=== PATIENT | male | born 2000 | race Caucasian/White ===

== ENCOUNTER 2025-06-03 16:05 | Outpatient (CLI) | payer OTHER, SELFPAY ==
--- NOTE | 2025-06-03 | XR_ITS ---
PROCEDURE INFORMATION: Exam: XR Left Knee Exam date and time: 06/03/2025 4:16 PM Age: 24 years old Clinical indication: Pain; Knee; Left TECHNIQUE: Imaging protocol: Radiologic exam of the left knee. Views: 3 views. COMPARISON: No relevant prior studies available. FINDINGS: Bones/joints: There is no evidence of acute fracture.There is no evidence of malalignment or dislocation. Mild Suprapatellar joint effusion Soft tissues: Normal. IMPRESSION: There is no evidence of acute fracture.There is no evidence of malalignment or dislocation.
--- NOTE | 2025-06-03 | XR_ITS ---
PROCEDURE INFORMATION: Exam: XR Right Knee Exam date and time: 06/03/2025 4:16 PM Age: 24 years old Clinical indication: Pain; Knee; Right TECHNIQUE: Imaging protocol: Radiologic exam of the right knee. Views: 3 views. COMPARISON: No relevant prior studies available. FINDINGS: Bones/joints: There is no evidence of acute fracture.There is no evidence of malalignment or dislocation. Mild suprapatellar joint effusion. Soft tissues: Normal. IMPRESSION: 1. There is no evidence of acute fracture.There is no evidence of malalignment or dislocation. 2. Mild suprapatellar joint effusion.
--- OUTSIDE RECORDS SUMMARY | 2025-06-03 16:11 | XMS_ITS | Clinical Summary ---
Author Organization [facility] Address [address] 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 Phone Unavailable Primary Care Provider Unavailabl e Allergies No known active allergies Medications No known medications Active Problems Problem Noted Date Diagnosed Date Full body hives 03/23/2016 Fx wrist 12/19/2012 Oral herpes simplex infection 09/28/2012 Immunizations Immunization Administration Dates Next Due DTaP 02/12/2003, 0,03/11/1999,1998,1998 HPV Quadrivalent 06/20/2013 Hepatitis A, Unspecified Formulation 06/20/2013 Hepatitis B, Unspecified Formulation 05/08/1999, 1998,1998 HiB, Unspecified Formulation 08/23/2000, 03/11/1999,01/22/1999,1997 IPV 02/12/2003, 9,01/22/1999,1997 Influenza Vaccine, Unspecifi ed Formulation 09/18/2011 MMR 02/12/2003,08/23/2000 Tdap 08/14/2009 Varicella 06/20/2013,02/12/2003 Social History Tobacco Use Types Packs/Day Years Used Date Smoking Tobacco: Never Smokeless Tobacco: Never Tobacco Cessation:Counseling Given: Yes Alcohol Use Standard Drinks/Week Comments No 0 (1 standard drink = 0.6 oz pur e alcohol) PHQ-2 Answer Date Recorded PHQ-2 Score 0 04/18/2019 Sex and Gender Information Value Date Recorded Sex Assigned at Not on file Legal Sex Male 3:59 AM EDT Gender Identity Not on file Sexual Orientation Not on file Obstetrics History Last Filed Vital Signs Vital Sign Reading Time Taken Comments Blood Pressure 118/70 01/23/2019 8:17 AM EST Pulse 85 01/23/2019 8:17 AM EST Temperature 36.6 C (97.8 F) 01/23/2019 8:17 AM EST Respiratory Rate - - Oxygen Saturation 98% 01/23/2019 8:17 AM EST Inhaled Oxygen Concentration - - Weight 62.8 kg (138 lb 6.4 oz) 01/23/2019 8:17 A M EST Height 165.1 cm (5' 5 ) 06/20/2013 1:50 PM EDT Body Mass Index - - Plan of Treatment Health Maintenance Due Date Last Done Comments Annual Wellness Exam 2001 HPV (2 - Male 2-dose series) 12/21/2013 06/20/2013 COVID-19 Vaccine (3 - season) 2024 02/11/2021, 01/07/2021 Influenza Vaccine (#1) 2025 , 11/05/2019, 01/27/2015 (Declined), Additional history exists DTaP/TDaP/Td (8 - Td or Tdap) 11/05/2029 11/05/2019, 08/14/2009, 02/12/2003, Additional history exists Hepatitis B Vaccine Completed 12/13/2019, 11/05/2019, 05/08/1999, Additional history exists Meningococcal B Vaccine Aged Out No l onger eligible based on patient's age to complete this topic Pneumococcal Vaccine 0-49 Aged Out No longer eligible based on patient's age to complete this topic Goals Goal Patient Goal Type Associated Problems Recent Progress Patient-Stated? Author Maintain a healthy diet, exercise regularly and maintain an ideal body weight General No Zehra Ortiz, [facility]
== END 2025-06-03 23:59 | disposition home or self-care (01) ==
PROVIDERS: PCP Internal Medicine; Visit Provider Chiropractor
DX: M25.461 Effusion, right knee (principal); M19.90 Unspecified osteoarthritis, unspecified site
CPT/HCPCS: 73562

== ENCOUNTER 2025-07-16 13:26 | Outpatient (CLI) | payer OTHER, SELFPAY ==
--- OUTSIDE RECORDS SUMMARY | 2025-07-16 13:28 | XMS_ITS | Continuity of Care Document ---
Author Name [facility] Organization [facility] Care Team Providers Care Speech Pathologist Name Role Phone [facility] Unavailable Unavailable Problems Combined list of problems from Department of Defense and Veterans Affairs facilities. It does not include entries that were removed or entered in error. Problem Status Onset Date Problem Type Date of Resolution Comments Source Diagnosis deferred Active 08/10/2024 Diagnosis 0067A[facility] Cnt Follicular disorder, unspecified Inactive 10/05/2023 Condition DoD Dyshidrosis [pompholyx] Inactive 07/21/2023 Condition DoD Encounter for other administrative examinations Inactive 06/29/2023 Condition DoD Other viral enteritis Inactive 06/07/2023 Condition DoD Low back pain Inactive 05/09/2023 Condition DoD Encounter for other general examination Inactive 11/02/2022 Condition DoD Viral intestinal infection, unspecified Inactive 10/07/2022 Condition DoD Acute upper respiratory infection, unspecified Inactive 06/04/2022 Condition DoD Ingrowing nail Inactive 08/28/2021 Condition DoD Nausea with vomiting, unspecified Inactive 04/27/2021 Condition DoD EXAM/ASSESSMENT, OCCUPATIONAL, 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 It does not include entries that were removed or entered in error. Substance Category Reaction Severity Reaction type Status Date Reported Comments Source No Known Allergies Drug allergy (disorder) active 01/01/2020 [facility] Immunizations Combined list of available immunizations from the Department of Defense and Veterans Affairs facilities. Immunization Series Date Given Administered By Site Reaction Lot Number CVX Code Drug Central Processing Technician Status Comments Source typhoid Vi capsular polysaccharid e vac 2021 UNK 101 Unknown complet ed typhoid Vi capsular polysacch aride vac 05/27/22 Given Ambulat ory Pharmac y COVID Vaccine Moderna 2021 [id number] complet ed COVID Vaccine Moderna 04/02/22 Given Ambulat ory Pharmac y SARS-COV-2 (COVID-19) vaccine, mRNA, spike protein, LNP, preservative free, 100 mcg or 50 mcg dose 3 2021 [id number] 207 Moderna [employer] (MOD) complet ed SARS-COV- 2 (COVID-19 ) vaccine, mRNA, spike protein, LNP, preservat ramsey free, 100 mcg or 50 mcg dose DoD influenza, injectable, quadrivalent 2020 [id number] [employer] vt complet ed influenza , injectabl e, quadrival ent 08/31/21 Given Ambulat ory Pharmac y hepatitis A-hepatitis B vaccine 2020 UNK 104 Unknown complet ed hepatitis A-hepatit is B vaccine 04/23/21 Given Ambulat ory Pharmac y hepatitis A-hepatitis B vaccine 2020 UNK 104 Unknown complet ed hepatitis A-hepatit is B vaccine 04/23/21 Given Ambulat ory Pharmac y hepatitis A and hepatitis B vaccine 3 2020 UNK 104 Unknown (UNK) comple t ed hepatitis A and hepatitis B vaccine DoD Taiwanese Encephalitis IM 2020 UNK 134 Unknown complet ed Taiwanese Encephali tis IM 03/12/21 Given Ambulat ory Pharmac y Taiwanese Encephalitis vaccine for intramuscular administratio n 1 2020 UNK 134 Unknown (UNK) comple t ed Taiwanese Encephali tis vaccine for intramusc ular administr ation DoD COVID Vaccine Moderna 2020 [id number] complet ed COVID Vaccine Moderna 02/11/21 Given Ambulat ory Pharmac y SARS-COV-2 (COVID-19) vaccine, mRNA, spike protein, LNP, preservative free, 100 mcg or 50 mcg dose 2 2020 [id number] 207 Moderna US, Inc. (MOD) complet ed SARS-COV- 2 (COVID-19 ) vaccine, mRNA, spike protein, LNP, preservat ramsey free, 100 mcg or 50 mcg dose DoD COVID Vaccine Moderna 2020 zzLef t Arm [id number] 207 complet ed COVID Vaccine Moderna 01/07/21 Given Ambulat ory Pharmac y SARS-COV-2 (COVID-19) vaccine, mRNA, spike protein, LNP, preservative free, 100 mcg or 50 mcg dose 1 2020 MICHAEL ALEJANDRE [id number] 207 Moderna [employer] (MOD) complet ed SARS-COV- 2 (COVID-19 ) vaccine, mRNA, spike protein, LNP, preservat ramsey free, 100 mcg or 50 mcg dose DoD influenza, injectable, quadrivalent 2019 [id number] 158 Seqirus complet ed influenza , injectabl e, quadrival ent 09/26/20 Given Ambulat ory Pharmac y influenza, injectable, quadrivalent, contains preservative 0 2019 [id number] 210 158 Seqirus (SEQ) complet ed influenza , injectabl e, quadrival ent, contains preservat ramsey DoD varicella virus vaccine 0 2019 21 () Not Given varicella virus vaccine DoD Taiwanese Encephalitis IM 2019 [facility] Arm TRANSCR IBED 134 complet ed Taiwanese Encephali tis IM 12/18/19 Given Ambulat ory Pharmac y typhoid Vi capsular polysaccharid e vac 2019 [facility] Arm TRANSCR IBED 101 complet ed typhoid Vi capsular polysacch aride vac 12/18/19 Given Ambulat ory Pharmac y typhoid Vi capsular polysaccharid e vaccine 1 2019 101 Transcribed (TRS) complet ed typhoid Vi capsular polysacch aride vaccine DoD Taiwanese Encephalitis vaccine for intramuscular administratio n 1 2019 134 Transcribed (TRS) complet ed Taiwanese Encephali tis vaccine for intramusc ular administr ation DoD poliovirus vaccine, inactivated [facility] [id number] 10 sanofi pasteur complet ed polioviru s vaccine, inactivat ed 12/13/19 Given Ambulat ory Pharmac y measles/mumps /rubella virus vaccine 2019 zzRig Arm [id number] Merck & iMedX Inc complet ed measles/m umps/rube lla virus vaccine 12/13/19 Given Ambulat ory Pharmac y hepatitis A-hepatitis B vaccine 2019 zzLef t Arm [id number] 104 GlaxoSmithKli ne complet ed hepatitis A-hepatit is B vaccine 12/13/19 Given Ambulat ory Pharmac y measles, mumps and rubella virus vaccine 2 2019 MEHNAZ KEE [id number] 03 Merck (MSD) complet ed measles, mumps and rubella virus vaccine DoD poliovirus vaccine, inactivated 1 2019 MEHNAZ KEE [id number] 10 Sanofi Pasteur (PMC) complet ed polioviru s vaccine, inactivat ed DoD hepatitis A and hepatitis B vaccine 2 2019 MEHNAZ KEE [id number] 104 RiseSmart (SKB) complet ed hepatitis A and hepatitis B vaccine DoD hepatitis A-hepatitis B vaccine 2018 zzLef t Arm [id number] 104 GlaxoSmithKli ne complet ed hepatitis A-hepatit is B vaccine 11/05/19 Given Ambulat ory Pharmac y influenza, injectable, quadrivalent- pf 2018 zzRig ht Arm [id number] 150 Seqirus complet ed influenza , injectabl e, quadrival ent-pf 11/05/19 Given Ambulat ory Pharmac y meningococcal A,C,Y,W-135 (MCV4P) 2018 zzLef t Arm [id number] 114 sanofi pasteur complet ed meningoco ccal A,C,Y,W-1 35 (MCV4P) 11/05/19 Given Ambulat ory Pharmac y tetanus, diphtheria, acellular pertu is 2018 zzRig ht Arm [id number] 115 GlaxoSmithKli ne complet ed tetanus, diphtheri a, acellular pertussis 11/05/19 Given Ambulat ory Pharmac y measles/mumps /rubella virus vaccine 2018 zzRig ht Arm [id number] 03 Merck & Company Inc complet ed measles/m umps/rube lla virus vaccine 11/05/19 Given Ambulat ory Pharmac y adenovirus vaccine, live 2018 [id number] 143 Unknown complet ed adenoviru s vaccine, live 11/05/19 Given Ambulat ory Pharmac y measles, mumps and rubella virus vaccine 1 2018 MEHNAZ KEE [id number] 03 Merck (MSD) complet ed measles, mumps and rubella virus vaccine DoD hepatitis A and hepatitis B vaccine 1 2018 MEHNAZ KEE [id number] 104 SmithKline (SKB) complet ed hepatitis A and hepatitis B vaccine DoD meningococcal polysaccharid e (groups A, C, Y and W-135) diphtheria toxoid conjugate vaccine (MCV4P) 1 2018 MEHNAZ KEE [id number] 114 Sanofi Pasteur (PMC) complet ed meningoco ccal polysacch aride (groups A, C, Y and W-135) diphtheri a toxoid conjugate vaccine (MCV4P) DoD tetanus toxoid, reduced diphtheria toxoid, and acellular pertu is vaccine, adsorbed 1 2018 MEHNAZ KEE [id number] 115 SmithKline (SKB) complet ed tetanus toxoid, reduced diphtheri a toxoid, and acellular pertussis vaccine, adsorbed DoD Adenovirus, type 4 and type 7, live, oral 1 2018 MEHNAZ KEE [id number] 143 Other (OTH) complet ed Adenoviru s, type 4 and type 7, live, oral DoD Influenza, injectable, quadrivalent, preservative free 1 2018 MEHNAZ KEE [id number] 150 Seqirus (SEQ) complet ed Influenza , injectabl e, quadrival ent, preservat ramsey free DoD Results Combined list of recent chemistry, hematology and other laboratory results from Department of Defense and Veterans Affairs, ranging from 15 months to all on record, depending upon the facility. Order Name Results Value Reference Range Date Interpretation Specimen Comments Source [facility] r Infectio us Disease HSV-1 DNA LC Negative 11/16[facility] Infectio us Disease HSV-2 DNA LC Negative 11/16 Result Comment: This test was developed and its performance characteris tics determined by [facility]. It has not been cleared or approved by the U.S. Food and Drug Administrat ion. The FDA has determined that such clearance or approval is not necessary. This test is used for clinical purposes. It should not be regarded as investigati onal or research. Performed At: 01 [facility] [address], [place] [id number] Abril Kaplan MD Ph:[phone] r Infectio us Disease Chlamydia NAAT, Ur Not Detected ( 3 8:58 AM) 10/26 N 5600A-[facility] r Infectio us Disease GC NAAT, Ur Not Detected 4 ( 3 8:58 AM) 10/26 N Interpretiv e Data: NAAT = Nucleic acid amplificati on test A positive result indicates that DNA of Chlamydia trachomatis (CT) and/or Neisseria gonorrhoeae (GC) is present in the specimen tested and strongly supports a diagnosis of chlamydial/ gonorrheal infection. A negative result indicates that DNA for CT and/or GC was not detected in the specimen. An indetermina te result indicates that a specimen contains inhibitory substances that prevent nucleic acid target extraction and/or amplificati on and detection. See the Limitation s section in the Lab Guide for known interfering substances. The performance of this assay has not been evaluated in adolescents less than 14 years of age. This report is intended for use in clinical monitoring or management of patients; it is not intended for use in medico-lega l application s. The assay has not been evaluated with patients who are currently being treated with antimicrobi al agents active against CT or GC as well as patients with a history of hysterectom y. In general, this assay should not be used to assess therapeutic success or failure since nucleic acids from these organisms may persist for 3 weeks or more following antimicrobi al therapy. The predictive value of an assay depends on the prevalence of the disease in any particular population. In settings with a high prevalence of sexually transmitted disease, positive assay results have a high likelihood of being true positives. In settings with a low prevalence of sexually transmitted disease, or in any setting in which a patient's clinical signs and symptoms or risk factors are inconsisten t with gonococcal or chlamydial urogenital infection, positive results should be carefully assessed and the patient retested by other methods (e.g., culture for Neisseria gonorrhoeae ), if appropriate . The prevalence for all specimens tested in this laboratory is 5% for CT and 0.5% for GC. At this prevalence, the [facility] r estimates the overall sensitivity and specificity for CT to be 94.1% and 99.6% respectivel y. For GC the sensitivity and specificity rates are 97.1% and 99.8%. The Positive Predictive Value and the Negative Predictive Value calculated by the manufacture r using the above clinical trial data are 92% and 99.7% for CT and 82% and 100% for GC. Results should be interpreted in conjunction with other laboratory and clinical information . A negative result does not exclude the possibility of infection. Improper specimen collection, concurrent antibiotic therapy, presence of inhibitors, or low numbers of organisms in the specimen may cause false-negat ramsey results. If clinical indications strongly suggest gonococcal or chlamydial infection, additional specimens should be collected for testing. Testing of urine specimens with this method is not intended to replace a cervical exam and endocervica l sampling for diagnosis of urogenital infection. A first catch urine specimen is acceptable but may detect up to 10% fewer infections when compared with vaginal and endocervica l swab specimens. Methodology : NAAT Notifiable result/cond ition for [facility] department. Notify your local doctors hospital immediately for proper notificatio n. [facility]A-[facility] EPILAB Immunolo gy/Serol ogy Treponema pallidum Ab Non-Reac tive 1 ( 3 8:47 AM) 10/26 N Interpretiv e Data: NON-REACTIV E: No laboratory evidence of syphilis infection. A negative result cannot exclude incubating or early primary syphilis. If recent exposure is suspected, submit another sample in 2 - 4 weeks to repeat testing. REACTIVE: Suggest infection with Treponema pallidum at some point in the past, but does not distinguish between treated and untreated infection. All REACTIVE results will automatical ly reflex to a supplementa l Syphilis assay in accordance to the Center for Disease Control and Prevention (CDC) diagnostic algorithm. Methodology : Electrochem iluminescen t immunoassay (ECLIA) The performance characteris tics of this assay have not been evaluated for use in pediatric populations . Notifiable result/cond ition for Local/State Public Health () department, notify your local [facility] immediately for proper notificatio n. [facility] EPILAB Infectio us Disease HIV-1/2 AG/AB 4G CDD LC NEGATIVE 10/26 Result Comment: Performed At: 1 [facility] [id number] [place] [address] [address] [place] [address] DAMASO SULLIVAN PHD Ph:[phone] Infectio us Disease Source of Test.LC Phys Exam ( 3 8:47 AM) 10/26 N 0622[facility] Encounters Combined list of: 1) Encounters from Department of Veterans Affairs facilities going backup to the last 18 months, not all VA inpatient encounters are included; 2) Encounters from the Department of Defense facilities going backup to 280 months. Location Location Details Encounter Type Encounter Number Reason For Visit Attending Provider ADM Date DC Date Status Disposition Source [facility](Au diology [facility]) OUTPATIENT [id number] MARIAA GARRETT 11/02 Released w/o Limitations [facility]( Audiolo gy [facility]) [facility](Op tometry [facility]) OUTPATIENT [id number] GERI MARTINEZ 11/02 Released w/o Limitations [facility]( Optomet ry [facility]) [facility](We [facility] Male) OUTPATIENT [id number] Notes Entered by: MEHNAZ SUMMERS 05 Nov 2019 0850 ------- ------- ------- ------- -- P-4 Male Sabine kaplan MEHNAZ KEE 11/05 Released w/o Limitations [facility]( [facility] Male) [facility](Im munizatio n 1523) OUTPATIENT [id number] Notes Entered by: MEHNAZ SUMMERS 05 Nov 2019 1056 ------- ------- ------- ------- -- P4 Immuniz ations ROBSON ALFRED 11/05 Released w/o Limitations [facility]( Immuniz ation 1523) [facility](Im munizatio n 1523) OUTPATIENT [id number] Notes Entered by: MEHNAZ SUMMERS 13 Dec 2019 1121 ------- ------- ------- ------- -- 5-2 Immuniz ations ROBSON ALFRED Cheko 12/13 Released w/o Limitations [facility]( Immuniz ation 1523) [facility](Sp ecial Physicals [facility]) OUTPATIENT [id number] Notes Entered by: ELMER GARCIA 24 Dec 2019 1414 ------- ------- ------- ------- -- overseYAMEL Maher 12/24 Released w/o Limitations [facility]( Special Physica ls [facility]) [place] OUTPATIENT [id number] RT GREAT TOE IGT RYAN CORBETT 02/12 Released with Work/Duty Limitations [place]) [place] OUTPATIENT [id number] BUMPS IN GENITAL AREA/CA NKER SORES CRISTA LANCASTER 05/20 Released w/o Limitations [place] OUTPATIENT [id number] RASH IN AXILLA/ HEAT RASH CRISTA LANCASTER 05/26 Released w/o Limitations [place] OUTPATIENT [id number] Theater Provider 09/07 Released w/o Limitations [facility] OUTPATIENT [id number] Theater Provider 01/02 Sick at Home/Quarter s [facility] OUTPATIENT [id number] Theater Provider 01/16 Released w/o Limitations [facility] OUTPATIENT [id number] Theater Provider 02/09 Released w/o Limitations [facility] OUTPATIENT [id number] Theater Provider 02/25 Released w/o Limitations [facility] OUTPATIENT [id number] Theater Provider 03/06 Released w/o Limitations [facility] OUTPATIENT [id number] Theater Provider 04/25 Sick at Home/Quarter s [facility] OUTPATIENT [id number] Theater Provider 08/26 Released w/o Limitations [facility] OUTPATIENT [id number] Theater Provider 02/04 Sick at Home/Quarter s [facility] OUTPATIENT [id number] Theater Provider 06/04 Released w/o Limitations [facility] OUTPATIENT [id number] Theater Provider 06/07 Released w/o Limitations [facility] OUTPATIENT [id number] Theater Provider 07/02 Released w/o Limitations [facility] OUTPATIENT [id number] Theater Provider 10/07 Sick at Home/Quarter s [facility] OUTPATIENT [id number] Theater Provider 11/02 Released w/o Limitations [facility] OUTPATIENT [id number] Theater Provider 04/04 Released w/o Limitations [facility] OUTPATIENT [id number] Theater Provider 04/08 Released w/o Limitations [facility] OUTPATIENT [id number] Theater Provider 04/14 Released w/o Limitations [facility] OUTPATIENT [id number] Theater Provider 04/28 Released w/o Limitations [facility] OUTPATIENT [id number] Theater Provider 04/30 Released w/o Limitations [facility] OUTPATIENT [id number] Theater Provider 05/03 Released with Work/Duty Limitations [facility] OUTPATIENT [id number] Theater Provider 05/09 Released w/o Limitations [facility] OUTPATIENT [id number] Theater Provider 06/07 Released w/o Limitations [facility] OUTPATIENT [id number] Theater Provider 07/12 Released w/o Limitations [facility] OUTPATIENT [id number] Theater Provider 07/19 Released w/o Limitations [facility] OUTPATIENT [id number] Theater Provider 09/01 Released w/o Limitations [facility] OUTPATIENT [id number] Theater Provider 10/05 Released w/o Limitations [facility] OUTPATIENT [id number] Theater Provider 04/03 Released w/o Limitations [facility] [id number] Illness , unspeci fied RITESH ESTRELLA 08/10 Discharge Disposition: Home or Self Care 0067A-[facility] ervin Vaugh[facility] Procedures Combined list of: 1) Procedures from Department of Veterans Affairs facilities going back up to thelast 18 months, not all VA non-surgical procedures are included; 2) All procedures from the Department of Defense facilities. Procedure Procedure Type Code Date Perfomer Comments Sourc e No data available for this section Ambulato ry Pharmacy DYNAMIC ADJUSTABLE WRIST EXTENSION/FLEXION DEVICE, INCLUDES SOFT INTERFACE MATERIAL [facility] IMMUNIZATION ADMINISTRATION (INCLUDES PERCUTANEOUS, INTRADERMAL, SUBCUTANEOUS, OR INTRAMUSCULAR INJECTIONS); EACH ADDITIONAL VACCINE (SINGLE OR COMBINATION VACCINE/TOXOID) [facility] INJECTION, PENICILLIN G BENZATHINE, 100,000 UNITS [facility] PATIENT EDUCATION, NOT OTHERWISE CLASSIFIED, NON-PHYSICIAN PROVIDER, GROUP, PER SESSION [facility] VIS FUNCT SCREEN,AUTOMAT/SE NH-AUTOMAT BILAT QUANT DETERM VISUAL ACUITY,OCULAR ALIGN,COLOR VISION,PSEUDOISOC HROMAT PLATES,& FIELD VIS (MAY INC ALL/SOME SCRN DETERM FOR CONTRAST SENSITIV,VIS UND GLARE) [facility] AUDIOMETRIC TESTING OF GROUPS [facility] Vaccines Viral Measles, Mumps and Rubella, Live Vaccines Viral Measles, Mumps and Rubella, Live 90945 MEHNAZ KEE MMR; Series #: 2; 0.5 mL; SC; Right Arm; Mfg: Merck; Lot: [id number]; VIS given (Macy: 07/12/2019). [facility] Vaccines Viral Polio, Inactivated (Salk) Vaccines Viral Polio, Inactivated (Salk) 87898 MEHNAZ KEE IPV; Series #: 1; 0.5 mL; SC; Right Arm; Mfg: Visiogen Pasteur; Lot: [id number]; VIS given (Macy: 06/16/16; 10/02/15 - Multiple). [facility] Hepatitis A And Hepatitis B (Intramuscular Use) Adult Dosage Hepatitis A And Hepatitis B (Intramuscular Use) Adult Dosage 85479 MEHNAZ KEE Hep A-Hep B (Twinrix); Series #: 2; 1.0 mL; IM; Left Arm; [employer]: RiseSmart; Lot: [id number]; VIS given (Macy: 06/16/16 (hep A); 07/12/2019). DoD Immunization Administration One Vaccine Immunization Administration One Vaccine 20253 MEHNAZ KEE Immunization Administration Each Additional Vaccine Immunization Administration Each Additional Vaccine [address] Supervised Injection Intramuscular Antibiotic Supervised Injection Intramuscular Antibiotic 26830 MEHNAZ KEE Injection, penicillin g benzathine, 100,000 units MEHNAZ KEE Vaccines Adenovirus Type 4 Live, For Oral Use Vaccines Adenovirus Type 4 Live, For Oral Use 92938 MEHNAZ KEE Vaccines Adenovirus Type 7 Live, For Oral Use Vaccines Adenovirus Type 7 Live, For Oral Use 44329 MEHNAZ KEE Immunization Admin Intranasal / Oral Each Additional Vaccine Immunization Admin Intranasal / Oral Each Additional Vaccine 74568 MEHNAZ KEE Meningococcal Polysacch Diphtheria Toxoid Conjugate Vaccine MEHNAZ KEE Meningococcal MCV4P (Menactra); Series #: 1; 0.5 mL; IM; Left Arm; Apseg: Visiogen Pasteur; Lot: [id number]; VIS given (Macy: 07/12/2019). [facility] Tdap Vaccine Tdap Vaccine 00126 MEHNAZ KEE Tdap; Series #: 1; 0.5 mL; IM; Right Arm; [employer]: RiseSmart; Lot: [id number]; VIS given (Macy: 01/21/15). DoD Immunization Administration One Vaccine Immunization Administration One Vaccine 78050 MEHNAZ KEE [facility] Immunization Administration Each Additional Vaccine Immunization Administration Each Additional Vaccine 43595 MEHNAZ KEE [facility] Vaccines Viral Measles, Mumps and Rubella, Live Vaccines Viral Measles, Mumps and Rubella, Live 09988 MEHNAZ KEE MMR; Series #: 1; 0.5 mL; SC; Right Arm; Mfg: Merck; Lot: [id number]; VIS given (Macy: 07/12/2019). [facility] Hepatitis A And Hepatitis B (Intramuscular Use) Adult Dosage Hepatitis A And Hepatitis B (Intramuscular Use) Adult Dosage 69617 MEHNAZ KEE Hep A-Hep B (Twinrix); Series #: 1; 1.0 mL; IM; Left Arm; Mfg: RiseSmart; Lot: [id number]; VIS given (Macy: 06/16/16 (hep A); 07/12/2019). [facility] Patient education, not otherwise cla ified, non-physician provider, group, per se ion MEHNAZ KEE [facility] Threshold Audiogram (Pure Tone) Automated Threshold Audiogram (Pure Tone) Automated 0208T MARIAA GARRETT [facility] Audiometry Group Testing Audiometry Group Testing 68704 MARIAA GARRETT [facility] Visual Function Screening Visual Function Screening [id number] GERI MARTINEZ [facility] Social History Combined list of available smoking, tobacco, and other social history from [facility] facilities. Social History Type Response Date Comment Sour e Sex Representation Male (finding) 06/22/2022 Un known Organization Sexual Orientation Ambula tory Pharmacy Gender identity Ambulator y Pharmacy This section is an empty social history section. DoD Assessment and Plan Combined list of future care activities from [facility] and [facility] facilities (e.g., assessment and plan notes, appointments, orders, and referrals). Additional future care activities may be listed in the Plan of Care section. Result Assessment and Plan Date Source Assessment and Plan No data available for this section 07/16/2025 Ambulatory Pharmacy Functional Status Combined list of recent functional and cognitive assessments recorded at [facility] Functional [place] Measurement (FIM) Scale: 1 = Total Assistance (Subject = 0% +), 2 = Maximal Assistance (Subject = 25% +), 3 = Moderate Assistance (Subject = 50% +), 4 = Minimal Assistance (Subject = 75% +), 5 = Supervision, 6 = Modified [place] (Device), 7 = Complete [place] (Timely, Safely). Assessment Date/Time Source Assessment Type Assessment Skill Assessment Score Assessment Details No data available for this section
--- NOTE | 2025-07-16 13:31 | XR_ITS ---
FINAL REPORT CLINICAL HISTORY: ARTHRITIS pain FINDINGS: Left wrist Three views were obtained. There is no fracture or dislocation. The joint spaces appear normal. No soft tissue abnormality is identified. IMPRESSION: No acute process. Reviewed, Interpreted and Dictated by Neeraj Tenorio MD Transcribed by Angelia Musa Authenticated and [facility]
--- OUTSIDE RECORDS SUMMARY | 2025-07-16 13:31 | XMS_ITS | Clinical Summary ---
Author Organization [facility] Address [address] [place] [address] Phone Care Team Providers Care Contracting Manager Name Role Phone Unavailable Primary Care Provider [...] ideal body weight General No [facility] Ortiz, [facility]
== END 2025-07-16 23:59 | disposition home or self-care (01) ==
LOC: RAD 13:27
PROVIDERS: Visit Provider Chiropractor
DX: M19.90 Unspecified osteoarthritis, unspecified site (principal)
CPT/HCPCS: 73100